=== PATIENT | male | born 1945 | race Caucasian/White ===

== ENCOUNTER → 2020-03-08 | Outpatient (CLI) | payer MEDICARE, BC ==
--- NOTE | 2020-03-08 13:37 | RAD ---
L-spine 2 views INDICATION: Lumbar radiculopathy. FINDINGS: Lateral upright flexion and extension views of the lumbar spine were obtained. They show fixed grade 1 retrolisthesis of L3 on L4 with no evidence of abnormal motion. Multilevel disc degenerative change is present. No fracture or aggressive osseous lesions are seen. Arteriovascular calcifications in abdominal aorta. FINDINGS: No abnormal motion with flexion or extension in the lumbar spine with grade 1 retrolisthesis of L3 on L4 redemonstrated. EXAM: CT Lumbar Spine without IV contrast INDICATION: Reason: LUMBAR RADICULOPATHY / Spl. Instructions: / History: TECHNIQUE: Multi-detector row CT images were obtained through the lumbar spine without the use of IV contrast. Post-processing sagittal and coronal reconstructed images were obtained for interpretation. All CT scans performed at this facility utilize dose optimization techniques as appropriate to the exam, including the following: Automated exposure control and adjustment of the mA and/or KV according to patient size (this includes techniques or standardized protocols for targeted exams where dose is indication/reason for exam). COMPARISON: L-spine x-rays of the same day FINDINGS: The lowest fully formed disc is referred to as the L5-S1 level. ALIGNMENT: Grade 1 retrolisthesis of L3 on L4 measuring up to 4 mm is present. More subtle 1 to 2 mm of retrolisthesis is also evident at L2-L3. OSSEOUS: Generalized demineralization. No acute fracture or aggressive appearing osseous lesions. Chronic right L4 lamina fracture. Partial sacralization of the left L5 transverse process. DISC SPACES: Narrowing at multiple levels in the lumbar spine is mildly present, most conspicuous at L2-L3 and to a lesser extent at L1-L2 and L3-L4 where vacuum phenomenon is also present. Asymmetric disc space narrowing is also identified FACET JOINTS: Multilevel facet degenerative changes, with densest facet hypertrophy at L4-L5 and at L5-S1 especially on the right SPINAL CANAL: Moderate central canal narrowing due to partly ossified right paracentral disc and bilateral facet hypertrophy with disc space narrowing resulting in narrowing of the central canal to an AP diameter of 7 mm. Mild central canal narrowing at L3-L4 and poor due to the retrolisthesis aforementioned is also seen with AP diameter measurement of 9 mm. NEUROFORAMINA: Moderate bilateral foraminal narrowing at L4-L5 and moderate right-sided L5-S1 foraminal narrowing is present along with mild foraminal narrowing at L3-L4 greater on the left and at L2-L3 and to a lesser extent at L1-L2. SOFT TISSUES: Scattered arterial calcifications in abdominal aorta. IMPRESSION: Multilevel lumbar spinal degenerative spondylosis with chronic right L4 lamina fracture, mild rightward convexity scoliotic curvature of the lumbar spine, and grade 1 retrolisthesis of L2 on L3 and L3 on L4. These result in varying degrees of foraminal narrowing at multiple levels in the lumbar spine as well as central canal narrowing best appreciated at L3-L4 and at L4-L5. These can be evaluated in greater detail with CT lumbar myelography or MRI as clinically warranted. Electronically signed by: Selin Vasques MD (03/08/2020 1:34 PM) [id number]
== END | disposition home or self-care (01) ==
LOC: CT 10:31
PROVIDERS: ATTEND Neurological Surgery
DX: M47.26 Other spondylosis with radiculopathy, lumbar region (principal); M43.27 Fusion of spine, lumbosacral region; M48.07 Spinal stenosis, lumbosacral region; M84.48XA Pathological fracture, other site, initial encounter for fracture; M41.86 Other forms of scoliosis, lumbar region; I70.0 Atherosclerosis of aorta
CPT/HCPCS: 72100; 72131